=== PATIENT | female | born 1940 | race Caucasian/White ===

== ENCOUNTER → 2021-07-07 | Outpatient (CLI) | payer MEDICARE, OTHER ==
[~2021-07-07] MED LIST: ASCO500C PO; ASPI-630 PO; CHRO1TAB6 PO; CYAN25003 SL; HYDR-2145 PO; LOSA100T14 PO; MELO15TA23 PO; MULT-706 PO; OXYC5CAP PO; TRAM50TA PO; WARF-31 PO
[2021-07-07 09:38] LABS: BASO % 1 % (0-3); EOS # 0.3 x10^3/uL (0.0-0.7); EOS % 4 % (0-3); HEMATOCRIT 38.2 % (36.0-47.0); HEMOGLOBIN 13.2 g/dL (12.0-15.5); LYMPH # 3.1 x10^3/uL (1.0-4.8); LYMPH % 39 % (24-48); MEAN CORPUSCULAR HEMOGLOBIN 32 pg (25-35); MEAN CORPUSCULAR HGB CONC 35 g/dL (31-37); MEAN CORPUSCULAR VOLUME 92 fL (79-100); MONO # 0.7 x10^3/uL (0.0-1.1); MONO % 9 % (0-9); NEUT # 3.8 x10^3/uL (1.8-7.7); NEUT % 48 % (31-73); PLATELET COUNT 157 x10^3/uL (140-400); RED BLOOD COUNT 4.16 x10^6/uL (3.50-5.40); WHITE BLOOD COUNT 8.1 x10^3/uL (4.0-11.0)
[2021-07-07 09:51] LABS: PROTHROMBIN TIME PATIENT 12.7 SEC (11.7-14.0)
[2021-07-07 09:53] LABS: ALBUMIN 3.4 g/dL (3.4-5.0); CALCIUM 9.2 mg/dL (8.5-10.1); CREATININE 0.9 mg/dL (0.6-1.0); GFR 59.8
--- NOTE | 2021-07-07 10:08 | EKG ---
[facility] [address] [place] [address] Test Date: 2021-07-07 Test Time: 09:53:25 Pat Name: MAR AMADOR Department: Room: Gender: F Water Filtration Technician: DLO- : 1940 Requested By: KENIA HI Order Number: [id number] Reading MD: Edin Dodd Measurements Intervals Hoffman Rate: 67 P: 50 SC: 186 QRS: 22 QRSD: 84 T: 48 QT: 402 QTc: 428 Interpretive Statements SINUS RHYTHM Electronically Signed On 07-08-2021 13:00:01 CDT by Edin Dodd
[2021-07-08 01:11] LABS: HEMOGLOBIN A1C 5.4 % (4.8-5.6)
== END ==
LOC: SURGPAT 08:34
PROVIDERS: ATTEND Orthopaedic Surgery
DX: Z01.812 Encounter for preprocedural laboratory examination (principal); M16.11 Unilateral primary osteoarthritis, right hip
CPT/HCPCS: 36415; 80048; 82040; 82306; 83036; 85025; 85610; 85651; 85730; 87641; 93005

== ENCOUNTER 2021-07-22 10:17 | Inpatient (IN) | payer MEDICARE, OTHER ==
[2021-07-22] VITALS (8 sets, daily range): BP systolic 124–160; BP diastolic 49–74
[~2021-07-22] VITALS: Ht 185.4 cm; Wt 111.5 kg
[~2021-07-22 10:17] MED LIST changes: +ACETAMINOPHEN 500 MG TABLET PO PRN; +GABAPENTIN 300 MG CAPSULE. PO ONE; +HYDROmorphone 2 MG/ML VIAL IVP PRN; -MELO15TA23 PO; +MELOXICAM 7.5 MG TABLET PO ONE; +MORPHINE SULFATE 5 MG, KETOROLAC 30MG VIAL 30 MG, ROPIVacaine 0.5% PF 60 ML, EPINEPHrin... INT ART ONE; -OXYC5CAP PO; -TRAM50TA PO; +TRANEXAMIC ACID in NS IVPB 50 ML INJ ONE; +VANCOMYCIN 1GM IVPB FOR OMNI 250 ML IV PRN; -WARF-31 PO; +fentaNYL PF VIAL 100 MCG/2 ML VIAL IVP PRN
[2021-07-22] MEDS ORDERED: LIDOCAINE 2% PF 5 ML VIAL. ONE (10:35)
[2021-07-22] MEDS ORDERED: DEXAMETHASONE SOD PHOS 4 MG/ML VIAL ONE (10:35)
[2021-07-22] MEDS ORDERED: PROPOFOL 10 MG/ML (20ML) VIAL. IV ONE (10:35)
[2021-07-22] MEDS ORDERED: fentaNYL PF VIAL 100 MCG/2 ML VIAL ONE ×3 (10:36→15:20)
[2021-07-22] MEDS ORDERED: ONDANSETRON PF 4 MG/2 ML VIAL. ONE (10:36)
[2021-07-22] MEDS ORDERED: WARF-31 PO (10:57)
[2021-07-22] MEDS ORDERED: MELO15TA23 PO (10:57)
[2021-07-22] MEDS: SENNOSIDES/DOCUSATE 8.6/50MG TABLET. PO SCH (11:00)
[2021-07-22] MEDS ORDERED: diphenhydrAMINE 50 MG/ML VIAL IVP PRN (11:00)
[2021-07-22] MEDS ORDERED: MORPHINE SULFATE 2 MG/ML INJ. IVP PRN (11:00)
[2021-07-22] MEDS ORDERED: 0.9 % SODIUM CHLORIDE 10 ML DISP.SYRIN. IV PRN (11:00)
[2021-07-22] MEDS ORDERED: ZOLPIDEM 5 MG TABLET. PO PRN (11:00)
[2021-07-22] MEDS: IV NORMAL SALINE 1000ML BAG 1,000 ML IV SCH (11:00)
[2021-07-22] MEDS ORDERED: fentaNYL PF VIAL 100 MCG/2 ML VIAL IVP PRN (11:00)
[2021-07-22] MEDS ORDERED: DEXTROSE 50% 25 GM / 50ML DISP.SYRIN. IV PRN (11:00)
[2021-07-22] MEDS ORDERED: PROCHLORPERAZINE 5 MG TABLET. PO PRN (11:00)
[2021-07-22] MEDS: IV RINGERS,LACTATED 1000ML 1,000 ML IV SCH ×2 (11:06→16:19)
[2021-07-22 11:36] LABS: PROTHROMBIN TIME PATIENT 12.9 SEC (11.7-14.0)
[2021-07-22] MEDS ORDERED: ONDANSETRON PF 4 MG/2 ML VIAL. IVP SCH (12:00)
[2021-07-22] MEDS ORDERED: ONDANSETRON ODT 4 MG TAB.RAPDIS. PO SCH (12:00)
[2021-07-22] MEDS ORDERED: VANCOMYCIN 1 GM VIAL. ONE ×2 (12:01)
[2021-07-22] MEDS ORDERED: GLYCOPYRROLATE 1 MG/5 ML VIAL. ONE (13:33)
[2021-07-22] MEDS ORDERED: SEVOFLURANE 61 TO 120 MINUTES. IH ONE (14:11)
--- NOTE | 2021-07-22 14:25 | HP ---
ADMIT DATE: 07/22/2021 PREOPERATIVE HISTORY AND PHYSICAL CHIEF COMPLAINT: Right hip pain. HISTORY OF PRESENT ILLNESS: The patient indicates about a 2-year or more history of right hip and groin pain, worse with activity. She also has some problems with her right knee as well and a knock knee deformity. She does have a brace from [facility] for the right knee, feels like she is walking in a tilted type fashion and has to position her feet very carefully. 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 She really does not walk with any assistance because she felt like a cane or walker might make her weak. PAST MEDICAL HISTORY: Hypertension. PAST SURGICAL HISTORY: Appendectomy, partial hysterectomy, venous ligations bladder surgery, left total hip and skin cancer surgery. FAMILY HISTORY: Mother had a stroke, epilepsy in her dad, multiple cancers in the sister. SOCIAL HISTORY: Denies current smoking, alcohol or drug use and had a history of smoking very remotely and quit over 50 years ago. MEDICATIONS: List is reviewed. ALLERGIES: She has no known drug allergies. REVIEW OF SYSTEMS: She does indicate a recent episode of a bit of perhaps low blood pressure yesterday. She thinks may be due to some dehydration as she was outside. No symptoms today and denies specifically any chest pain, shortness of breath, recent febrile illness or other constitutional symptoms. PHYSICAL EXAMINATION: HEENT: Within normal limits. HEART: Regular rate and rhythm. LUNGS: Clear to auscultation bilaterally. ABDOMEN: Benign. EXTREMITIES: Examination of the right hip. She is tender at her already extremely limited range of motion. Leg lengths are equal. Negative straight leg raise bilaterally. She has a well-healed posterior incision from total hip arthroplasty on the left. Both knees have a significant valgus deformity, right is a bit more severe than the left and she has joint line tenderness mainly lateral more so than medial on the right more so than the left. There is some lateral collateral ligaments pseudolaxity but no other gross ligamentous instability and normal alignment, stability, bilateral ankles. IMPRESSION: 1. Primary osteoarthritis, right hip. 2. History of total left hip. 3. Valgus deformity, bilateral knees. TREATMENT PLAN: We had reviewed risks, benefits, postoperative course of total hip arthroplasty. The fact that this is not going to treat her knee deformity, although sometimes pain is referred down from the hip to the knee and that may be help she can continue the bracing on the right knee in the interim and we talked through risks of infection, nerve root, blood vessel damage, instability, leg length inequality, medical or other anesthetic complications among others. All her questions were answered. She does wish to proceed with a right total hip arthroplasty, which will include [facility] observation to follow. JERICA DR: Gladys TID: [id number]
--- NOTE | 2021-07-22 15:18 | PDOC4 ---
Operative Note Operative Note Date of surgery: 07/22/2021 Preoperative diagnosis: Degenerative joint disease right hip Postoperative diagnosis: Same Operative procedure: Right total hip arthroplasty with anterior approach Surgeon Deon Plant Control Operator: Sumit young Anesthesia: General Estimated blood loss: 150 cc Complications: None Drains: None Operative indications: Please see my orthopedic clinic note and dictated history and physical for detailed operative indications and note that we covered risks benefits postoperative course of the procedure. We specifically discussed the p ossibility of infection leg length inequality, nerve or blood vessel damage premature wear or loosening medical or other anesthetic complications among others. All her questions were answered and she wishes to proceed with surgical evaluation and treatment having given informed consent Operative text: Patient was identified procedure verified patient placed in the supine position on the [place] fracture table after adequate amounts of general anesthesia were administered. All bony prominences were well-padded and left hip was prepped and draped in the standard sterile fashion. After timeout was performed patient procedure identified and verified an incision was made just distal to the anterior superior iliac spine running along the tensor fascia ryan for a distance of about 6 inches. Fascia was incised tensor fascia ryan was taken laterally and circumflex vessels were located and coagulated and the anterior capsule was exposed with the rectus femoris gently retracted medially along with the underlying fascia that was dissected free. Capsule was split in a T-shaped incision and superior aspect of the capsule was excised and further superior release was carried out with the hip in external rotation. Hip was returned to 40 degrees external rotation and a napkin ring cut was made with an Avenir Mellisa broach for reference napkin ring was removed and femoral head was removed and sized. Reaming was carried out to a size 57 with a size 58 Biomet G7 acetabular shell was placed in proper version under fluoroscopic guidance and excellent scratch fit was noted. A 40 mm vitamin E liner was impacted into place. Femur was brought into maximum external rotation extension and adduction and release was carried out at the 11 o'clock position to free up the femur and retractors were placed medially and above the greater trochanter for maximum femoral exposure box osteotome was used along with the rattail rasp and successive size broaching up to a size 8 which provided excellent stability and fit within the canal. Calcar reaming was carried out and trial fitting with a - 3.5 40 mm head to reproduce leg length and offset appropriately under fluoroscop ic guidance. Trial components were removed and a size 8 standard offset collared Avenir stem was impacted into place with a -3.5 ceramic 40 mm head. Excellent stability and range of motion were noted and leg length and offset were reproduced closely according to preoperative measurements and measurements from the contralateral side. Thorough irrigation carried out with normal saline solution and pulse lavage. Intra-articular mixture was injected subperiosteally throughout the joint capsule and subcutaneous areas and 1 g vancomycin sprinkled throughout the joint capsule area. Fascia was closed with #1 PDS strata fix suture in a running fashion subcutaneous closure with buried Vicryl skin closure with subcuticular Monocryl and a nika dressing was applied. Patient was returned to recovery room in stable condition having tolerated the procedure well. Sumit young was present for the procedure and assisted in the patient positioning prepping draping retraction closure and dressings KENIA HI MD Jul 22, 2021 15:18
[2021-07-22] MEDS ORDERED: PROCHLORPERAZINE 10 MG/2 ML VIAL. ONE (15:19)
[2021-07-22] MEDS ORDERED: MORPHINE SULFATE 2 MG/ML INJ. ONE (15:20)
[2021-07-22] MEDS: PROCHLORPERAZINE 10 MG/2 ML VIAL. IVP PRN ×2 (15:40→16:01)
[2021-07-22] MEDS: fentaNYL PF VIAL 100 MCG/2 ML VIAL IVP PRN ×2 (15:41→16:01)
[2021-07-22] MEDS: MORPHINE SULFATE 2 MG/ML INJ. IVP PRN ×2 (15:42→16:53)
[2021-07-22] MEDS ORDERED: WARFARIN 7.5 MG TABLET. PO ONE (16:00)
[2021-07-22] MEDS: FERROUS SULFATE 325 MG TABLET. PO SCH (17:00)
--- NOTE | 2021-07-22 17:26 | NUR ---
Arrived to unit by bed from PACU. Drowsy but awakens to answer questions and falls back to sleep. No c/o at this time. Noted pt O2 sats drop on 2.5L per n/c sating 84%. Changed to face mask sating 100%. IVF's intact and infusing. MEME's and SCD's on bilaterally. Side rails up x's 3 with call light in reach. Family at bedside. Cont. monitor.
[2021-07-23 02:59] VITALS: BP 139/55
[2021-07-23 05:16] LABS: PROTHROMBIN TIME PATIENT 13.3 SEC (11.7-14.0)
[2021-07-23] MEDS ORDERED: GABAPENTIN 100 MG CAPSULE. PO SCH (06:00)
[2021-07-23] MEDS: traMADol 50 MG TABLET PO SCH ×3 (06:00→17:56)
[2021-07-23] MEDS ORDERED: MAGNESIUM HYDROXIDE 2,400 MG/30 ML ORAL.SUSP. PO PRN (06:00)
--- NOTE | 2021-07-23 06:35 | NUR ---
Was able to wean O2 down to 6l per NC. Diastolic was 49 earlier. Sat on side of bed w/ assist, stated she "felt funny". Assisted to BSC, + void. Slept well all noc. No c/o pain.
[2021-07-23 07:00] VITALS: BP 130/54
[2021-07-23] MEDS: FERROUS SULFATE 325 MG TABLET. PO SCH ×2 (08:00→17:56)
[2021-07-23 08:16] LABS: HEMATOCRIT 34.3 % (36.0-47.0); HEMOGLOBIN 11.2 g/dL (12.0-15.5)
[2021-07-23] MEDS: MELOXICAM 7.5 MG TABLET PO SCH (08:45)
[2021-07-23] MEDS: ACETAMINOPHEN 500 MG TABLET PO SCH ×3 (08:49→20:52)
[2021-07-23] MEDS: MULTIVITAMIN with MINERAL TABLET. PO SCH (08:49)
[2021-07-23] MEDS: ASPIRIN CHEWABLE 81 MG TABLET. PO SCH (08:54)
[2021-07-23] MEDS: LOSARTAN POTASSIUM 50 MG TABLET. PO SCH (09:00)
[2021-07-23] MEDS: hydroCHLOROthiazide 25 MG TABLET PO SCH (09:00)
[2021-07-23] MEDS: SENNOSIDES/DOCUSATE 8.6/50MG TABLET. PO SCH (09:00)
--- NOTE | 2021-07-23 09:38 | NUR ---
Pharmacy Warfarin Dosing Note S:Pharmacy consulted to assist with anticoagulation therapy started 07/22/21 with target INR: 1.6 - 2.5 O:MAR AMADOR is a 81 year old F with FREDY LABS: Last INR: 1.0 Last HGB: 11.2 Last HCT: 34.3 Last PLT: Last dose of 7.5 mg given on 07/22/21 at 2122 Previous Regimen: Vitamin K given: N Drug Interaction Changes: Ongoing Drug Interactions: A:INR of 1.0 is below desired range. Target range for this patient is: 1.6 - 2.5 P: Warfarin dose: 5 mg Today at 1600. Bridge Therapy: None Next INR due tomorrow. Pharmacy anticoagulation service will continue to follow. Juan R Villanueva [facility], 07/23/21 0930
[2021-07-23] MEDS: IV NORMAL SALINE 1000ML BAG 1,000 ML IV SCH ×2 (11:00→20:45)
[2021-07-23 12:00] VITALS: BP 112/44
[2021-07-23] MEDS ORDERED: ONDANSETRON ODT 4 MG TAB.RAPDIS. PO PRN (12:00)
[2021-07-23] MEDS ORDERED: ONDANSETRON PF 4 MG/2 ML VIAL. IVP PRN (12:00)
[2021-07-23 15:00] VITALS: BP 131/46
[2021-07-23] MEDS ORDERED: BISACODYL 10 MG SUPP.RECT. PR PRN (16:00)
[2021-07-23] MEDS ORDERED: WARFARIN 5 MG TABLET. PO ONE (16:00)
--- NOTE | 2021-07-23 17:48 | PDOC ---
PROGRESS NOTES Date of Service DATE: 07/23/21 TIME: 17:45 Subjective Subjective Problems overnight: As of about 8 AM today she reported having good pain control and some soreness but less pain with walking than what she had preoperatively and she got up and down to the bathroom about 3 times last evening Objective Vital Signs Vital Signs Date Time Temp Pulse Resp B/P (MAP) Pulse Ox O2 Delivery O2 Flow Rate FiO2 07/23/21 15:00 98.2 78 18 131/46 (74) 97 Nasal Cannula 6.0 98.2 Physical Exam Noel dressing clean dry intact leg lengths equal distal neurovascular status intact Labs Laboratory Tests Test 07/22/21 11:00 07/23/21 04:00 Prothrombin Time 12.9 SEC (11.7-14.0) 13.3 SEC (11.7-14.0) Prothromb Time International Ratio 1.0 (0.8-1.1) 1.0 (0.8-1.1) Activated Partial Thromboplast Time 30 SEC (24-38) Hemoglobin 11.2 g/dL (12.0-15.5) Hematocrit 34.3 % (36.0-47.0) Laboratory Tests Test 07/23/21 04:00 Hemoglobin 11.2 g/dL (12.0-15.5) Hematocrit 34.3 % (36.0-47.0) Prothrombin Time 13.3 SEC (11.7-14.0) Prothromb Time International Ratio 1.0 (0.8-1.1) Imaging Intra-Op x-rays show excellent positioning of a total hip arthroplasty and equal leg lengths compared to contralateral hip Assessment Assessment POD#1 total hip arthroplasty Plan Plan of Care Continue mobilize with physical therapy Likely home with either home health or outpatient physical therapy depending on her progress Justicifation of Admission Dx: Justifications for Admission: Justification of Admission Dx: N/A KENIA HI MD Jul 23, 2021 17:48
[2021-07-23 19:00] VITALS: BP 111/42
[2021-07-23 23:00] VITALS: BP 126/44
[2021-07-24] MEDS: traMADol 50 MG TABLET PO SCH ×3 (00:26→13:21)
[2021-07-24 03:00] VITALS: BP 159/62
[2021-07-24] MEDS: ACETAMINOPHEN 500 MG TABLET PO SCH ×3 (03:00→16:21)
[2021-07-24 07:00] VITALS: BP 152/54
[2021-07-24 07:04] LABS: PROTHROMBIN TIME PATIENT 15.5 SEC (11.7-14.0)
[2021-07-24] MEDS: ASPIRIN CHEWABLE 81 MG TABLET. PO SCH (07:25)
[2021-07-24] MEDS: oxyCODONE IR 5 MG TABLET PO PRN ×2 (07:25→16:21)
[2021-07-24] MEDS: hydroCHLOROthiazide 25 MG TABLET PO SCH (07:25)
[2021-07-24] MEDS: SENNOSIDES/DOCUSATE 8.6/50MG TABLET. PO SCH (07:25)
[2021-07-24] MEDS: MULTIVITAMIN with MINERAL TABLET. PO SCH (07:25)
[2021-07-24] MEDS: FERROUS SULFATE 325 MG TABLET. PO SCH (07:26)
[2021-07-24] MEDS: MELOXICAM 7.5 MG TABLET PO SCH (07:26)
[2021-07-24] MEDS ORDERED: TRAM50TA PO (08:56)
[2021-07-24] MEDS ORDERED: OXYC5CAP PO (08:56)
--- NOTE | 2021-07-24 08:59 | SNU/HH DC ---
DISCHARGE WITH HOME HEALTH DISCHARGE INFORMATION: Discharge Date: Jul 24, 2021 Final Diagnosis: Status post total hip arthroplasty right Condition on Discharge: Stable CODE STATUS: Code Status: Full HOME HEALTH: Face to Face: I certify this patient is under my care and that I, or a nurse practitioner or physician's pediatric assistant working with me, had a face to face encounter that meets the physician face to face encounter requirements with this patient on [07/24/21]. Medical Complications: S/P Joint Replacement Long-Term For: Assess/Skilled Observatio RN For Eval/Treatment: Yes Physical Therapy For: Evalulation/Treatment Pt Meets Homebound Status: Limited distance walking POST DISCHARGE ORDERS: Activity Instructions for Disc: Progressive ambulation Weight Bearing Status after Di: As tolerated Bathing Instructions: Shower-keep dressing dry DIET AFTER DISCHARGE: Regular Wound/Incision Care: Ice to area for comfort, Do not change dressing (Maintain nika dressing, call if saturated, otherwise remove suction machine when it stops at 1 week and cut tail of dressing and tape over to maintain seal) FOLLOW-UP: Follow up with: Dr. Chavarria or Celina 2 weeks postop Warfarin Follow UP: Per [place] [facility] anticoagulation clinic warfarin dosage and testing CERTIFICATION STATEMENT: Certification Statement: Certification Statement: Based on the above finding, I certify that this patient is confined to the home and needs intermittent jail care, physical therapy and/or speech therapy, or continues to need occupational therapy.~ This patient is under my care, and I have initiated the establishment of the plan of care.~ This patient will be followed by myself or a community physician who will periodically review the plan of care. Home Meds Active Scripts Tramadol Hcl (TRAMADOL HCL) 50 Mg Tablet, 50 MG PO Q4HRS PRN for MODERATE PAIN 4-6, #40 TAB Prov:KENIA CHAVARRIA MD 07/24/21 Oxycodone Hcl (OXYCODONE HCL) 5 Mg Capsule, 5 MG PO PRN Q4HRS PRN for SEVERE PAIN 7-10, #30 TAB 0 Refills Prov:KENIA CHAVARRIA MD 07/24/21 Reported Medications Warfarin Sodium (WARFARIN SODIUM) 5 Mg Tablet, 5 MG PO ONCE for pre op, #30 TAB 07/22/21 Meloxicam (MELOXICAM) 15 Mg Tablet, 1 TAB PO ONCE for pre op for 30 Days, TAB 0 Refills 07/22/21 Cyanocobalamin (Vitamin B-12) (VITAMIN B-12) 2,500 Mcg Tab.subl, 1 TAB SL DAILY for SUPPLEMENT for 30 Days, #30 TAB 0 Refills 07/07/21 Ascorbic Acid (VITAMIN C) 500 Mg Capsule.er, 1 CAP PO DAILY for SUPPLEMENT for 30 Days, #30 CAP 0 Refills 07/07/21 Chromium/Herbal Complex No.238 (Green Tea Caplet) 1 Each Tablet, 1 EACH PO DAILY for SUPPLEMENT, TAB 07/07/21 Multivitamin/Iron/Folic Acid (Multivitamin with Iron Tablet) 1 Each Tablet, 1 EACH PO DAILY for SUPPLEMENT, TAB 07/07/21 Aspirin (ASPIRIN) 81 Mg Tab.chew, 1 TAB PO DAILY for PREVENT BLOOD CLOT, #30 TAB 3 Refills 07/07/21 Hydrochlorothiazide (HYDROCHLOROTHIAZIDE TABLET ) 25 Mg Tablet, 25 MG PO DAILY for DIURETIC, TAB 0 Refills 07/07/21 Losartan Potassium (LOSARTAN POTASSIUM) 100 Mg Tablet, 100 MG PO DAILY for HYPERTENSION, TAB 07/07/21 KENIA CHAVARRIA MD Jul 24, 2021 08:59
[2021-07-24] MEDS: LOSARTAN POTASSIUM 50 MG TABLET. PO SCH ×2 (09:00→16:25)
[2021-07-24 09:34] LABS: HEMATOCRIT 32.6 % (36.0-47.0)
--- NOTE | 2021-07-24 09:55 | NUR ---
Pharmacy Warfarin Dosing Note S: Pharmacy consulted to assist with anticoagulation therapy started 07/22/21 O: MAR AMADOR is a 81 year old F with FREDY LABS: Last INR: 1.2 Last HGB: 11 Last HCT: 32.6 Last PLT: - Last dose of 5 mg given on 07/23/21 at 1601 Vitamin K given: N Ongoing Drug Interactions: A:INR of 1.2 is below desired range. Target range for this patient is: 1.6 - 2.5 P: Warfarin dose: 5 mg Today at 1600 Bridge Therapy: None Next INR due tomorrow Pharmacy anticoagulation service will continue to follow. Sherlyn Cabrales RPH, 07/24/21 [id number]
[2021-07-24 11:08] VITALS: BP 136/53
[2021-07-24] MEDS: CALCIUM CARBONATE 500 MG TAB.CHEW PO PRN ×2 (13:20→16:20)
[2021-07-24] MEDS ORDERED: WARFARIN 5 MG TABLET. PO ONE (14:00)
[2021-07-24 15:00] VITALS: BP 172/63
[2021-07-24] MEDS ORDERED: WARF-31 PO (15:56)
[2021-07-24 16:25] VITALS: BP 172/63
--- NOTE | 2021-07-24 17:39 | NUR ---
reviewed written discharge instructions with patient and son. reviewed follow up with doctor incisional care PAZ dressing hip precautions home health and medications. all questions answered regarding medications especially pain meds.
--- NOTE | 2021-07-26 10:34 | DS ---
DATE OF DISCHARGE: 07/24/2021 ORTHOPEDIC DISCHARGE SUMMARY PRINCIPAL DIAGNOSIS: Degenerative joint disease of right hip. PROCEDURE: Right total hip arthroplasty, anterior. DISPOSITION MEDICATIONS: Include oxycodone 5 mg p.o. q. 4 hours p.r.n. severe pain; tramadol 50 mg p.o. q.4 hours p.r.n. moderate pain, dispense #30 of the oxycodone and #40 of the tramadol as well as warfarin to be administered by [facility]. Current dose is 5 mg daily. Additional continued medications: Vitamin C, baby aspirin, green tea cap with vitamin B12, hydrochlorothiazide, losartan, multivitamin, and stop meloxicam. DISCHARGE INSTRUCTIONS: Activity is weightbearing as tolerated. Avoid extremes of range of motion of the hip. No formal hip precautions, otherwise, necessary due to anterior approach. Maintain PAZ dressing, call if saturated, otherwise when suction machine stops, cut tail of dressing and tape over to maintain seal. Follow up with Dr. Chavarria or Dr. Patrick 2 weeks postoperatively. BRIEF DESCRIPTION OF HOSPITAL COURSE: The patient underwent an uncomplicated right anterior approach total hip arthroplasty. Postoperatively, noted less pain with ambulation, but some soreness in moving the hip as expected while she negotiated her ambulation and transfers quite well. She was requiring some supplemental oxygen initially, which was weaned down. She had no complaints of any chest pain, shortness of breath, was otherwise medically stable and was discharged home in stable condition. COLIN/AYUSH/TATI DR: Gladys TID: [id number]
== END 2021-07-24 17:25 | disposition home health service (06) | DRG 470 ==
LOC: SURG 10:17 → 4 NORTH 10:52 → OBSVTOIN 07-23 10:07
PROVIDERS: ADMIT Orthopaedic Surgery; ATTEND Orthopaedic Surgery
PROC: 0SR90JZ Replacement of Right Hip Joint with Synthetic Substitute, Open Approach (ICD-10-PCS; principal; 2021-07-22 12:30)
DX: M16.11 Unilateral primary osteoarthritis, right hip (principal); I10 Essential (primary) hypertension; M21.061 Valgus deformity, not elsewhere classified, right knee; M21.062 Valgus deformity, not elsewhere classified, left knee; Z82.0 Family history of epilepsy and other diseases of the nervous system; Z82.3 Family history of stroke; Z85.828 Personal history of other malignant neoplasm of skin; Z87.891 Personal history of nicotine dependence; Z90.711 Acquired absence of uterus with remaining cervical stump; Z96.642 Presence of left artificial hip joint
CPT/HCPCS: 36415; 76000; 85014; 85018; 85610; 85730; A4213; A4222; A4930; A6223; A6258; A6402; A6550; C1755; C1776; G0378; G0379; J0171; J0690; J0780; J1100; J1885; J2270; J2405; J2704; J2795; J3010; J3370; J3490; J7120; 97116-GP; 97150-GP; 97530-GP; 97535-GO